=== PATIENT | male | born 1950 | race African-American/Black ===

== ENCOUNTER 2021-09-15 01:03 | Inpatient (IN) ==
[2021-09-15] MEDS ORDERED: ASPIRIN 325 MG TABLET PO STA (01:46)
[2021-09-15] MEDS ORDERED: MORPHINE 2 MG/1 ML SYRINGE IV STA (01:46)
[2021-09-15] MEDS ORDERED: KETOROLAC 30 MG/1 ML VIAL IV STA (01:46)
[2021-09-15] MEDS ORDERED: ALUM/MAG/SIMETH/LIDO VISC 1:1 30 ML BOTTLE PO STA (01:46)
[2021-09-15] MEDS ORDERED: NITROGLYCERIN 2% OINT 1 INCH/GM PACK TOP STA (01:46)
[2021-09-15] MEDS ORDERED: ONDANSETRON 4 MG/2 ML VIAL IV STA (01:46)
[2021-09-15 02:20] LABS: Basophils # 0.1 10*3/uL (0.0-0.2); Basophils % 0.8 % (0.0-0.8); Eosinophils # 0.3 10*3/uL (0.0-0.87); Eosinophils % 3.8 % (0.00-10.9); Hematocrit 43.5 VOL% (42.0-52.0); Hemoglobin 14.1 GM/DL (14.0-18.0); Immature Granulocytes % 0.3 %; Immature Granulocytes Absolute 0.02 #; Lymphocytes # 2.7 10*3/uL (1.4-4.0); Mean Corpuscular HGB Conc 32.4 GM/DL (32-36); Mean Corpuscular Volume 91.6 FL (87-102); Mean Platelet Volume 9.4 FL (9.6-12.0); Monocytes % 11.5 % (1.7-12.7); Neutrophils % 41.6 % (38.7-73.9); Platelet Count 239 T/CUMM (130-400); Red Blood Count 4.75 MC/CUMM (3.8-5.5); Red Cell Distribution Width 15.8 % (9.3-17.3); White Blood Count 6.5 T/CUMM (4-12)
[2021-09-15 02:40] LABS: Alanine Aminotransferase 69 U/L (16-61); Albumin 3.7 G/DL (3.4-5.0); Alkaline Phosphatase 82 U/L (45-117); Aspartate Amino Transferase 96 U/L (0-37); Bilirubin,Total < 0.39 MG/DL (0.20-1.00); Blood Urea Nitrogen 15 MG/DL (7-18); Calcium 8.9 MG/DL (8.5-10.1); Carbon Dioxide 29 MMOL/L (21-32); Estimated Glom Filtration Rate 139 ML/MIN; Glucose 109 MG/DL (74-106); Osmolality,Calculated 278.5 MOS/KG (273-304); Potassium 4.1 MMOL/L (3.5-5.1); Sodium 139 MMOL/L (136-145); Total Protein 6.7 G/DL (6.4-8.2)
[2021-09-15] MEDS ORDERED: ENOXAPARIN 100 MG/ML SYRINGE SUBCUT STA (02:56)
[2021-09-15] MEDS ORDERED: POTASSIUM CHLORIDE 20 MEQ TABLET PO PRN (03:03)
[2021-09-15] MEDS ORDERED: GLUCAGON 1 MG VIAL IM PRN (03:03)
[2021-09-15] MEDS ORDERED: ACETAMINOPHEN 325 MG TABLET PO PRN (03:03)
[2021-09-15] MEDS ORDERED: ONDANSETRON 4 MG/2 ML VIAL IV PRN (03:03)
[2021-09-15] MEDS ORDERED: DEXTROSE 50% 25 GM/50 ML VIAL IV PRN (03:03)
[2021-09-15] MEDS ORDERED: MAGNESIUM SULF RIDER 4 GM/100 ML PREMIX IV PRN (03:03)
[2021-09-15] MEDS ORDERED: hydrALAZINE 20 MG/1 ML VIAL IV PRN (03:03)
[2021-09-15] MEDS ORDERED: MAGNESIUM SULF RIDER 2 GM/50 ML PREMIX IV PRN (03:03)
[2021-09-15] MEDS ORDERED: MORPHINE 2 MG/1 ML SYRINGE IV ONE (03:11)
[2021-09-15] MEDS ORDERED: METOPROLOL TARTRATE 5 MG/5 ML VIAL IV STA (03:40)
[2021-09-15] MEDS: SODIUM CHLORIDE 0.9% 1,000 ML IV SCH ×2 (04:11→16:21)
[2021-09-15 06:04] LABS: PT Patient Result 10.9 SECS (10.5-12.0); Partial Thromboplastin Time 35.6 SECS (23.8-32.1)
[2021-09-15 06:27] LABS: Risk Ratio 3.5; Thyroid Stimulating Hormone 1.71 uIU/ml (0.358-3.74); VLDL Cholesterol 11.4 MG/DL
[2021-09-15 06:31] LABS: CKMB % 5.1 %
[2021-09-15 06:35] LABS: High Sensitive Troponin I* 15353.7 ng/L (0-78)
[2021-09-15 07:00] LABS: Hepatitis B Core IgM Quant 0.08 Index; Hepatitis B Surface Ag Quant < 0.10 Index; Hepatitis B Surface Ag Result Non-Reactive (NonReactive); Hepatitis C Virus Ab Quant > 11.00 Index; Hepatitis C Virus Ab Result Reactive (NonReactive)
[2021-09-15] MEDS ORDERED: HEPARIN/NACL 0.9% 2 UNITS/ML 0 UNIT/0 ML BAG IV ONE (08:16)
[2021-09-15] MEDS ORDERED: LIDOCAINE 1% 20 ML VIAL ONE ×2 (08:16→10:32)
[2021-09-15] MEDS ORDERED: POTASSIUM CHLORIDE RIDER 10 MEQ/100 ML PREMIX IV PRN (09:29)
[2021-09-15] MEDS ORDERED: DIAZEPAM 5 MG TABLET PO ONE (09:29)
[2021-09-15] MEDS ORDERED: diphenhydrAMINE CAP 25 MG CAPSULE PO ONE (09:29)
[2021-09-15] MEDS ORDERED: HEPARIN/NACL 0.9% 2 UNITS/ML 3,000 UNIT/1,500 ML BAG IV ONE (10:32)
[2021-09-15] MEDS ORDERED: MIDAZOLAM 2 MG/2 ML VIAL ONE ×2 (10:55→11:10)
[2021-09-15] MEDS ORDERED: fentaNYL 100 MCG/2 ML VIAL ONE (10:55)
[2021-09-15] MEDS ORDERED: HEPARIN 5,000 UNIT/1 ML VIAL ONE (11:15)
[2021-09-15] MEDS ORDERED: CLOPIDOGREL 300 MG TABLET ONE (11:18)
[2021-09-15] MEDS ORDERED: diphenhydrAMINE 50 MG/1 ML VIAL ONE (11:23)
[2021-09-15] MEDS ORDERED: NITROGLYCERIN DRIP 50 MG/250 ML BOTTLE IV ONE (11:43)
[2021-09-15] MEDS ORDERED: LOPERAMIDE 2 MG CAPSULE PO PRN (12:11)
[2021-09-15] MEDS ORDERED: ENOXAPARIN 80 MG/0.8 ML SYRINGE SUBCUT SCH (16:00)
[2021-09-15] MEDS: LOSARTAN 25 MG TABLET PO SCH (16:20)
[2021-09-15] MEDS: carvediloL 3.125 MG TABLET PO SCH ×2 (16:20→22:29)
[2021-09-15] MEDS: PANTOPRAZOLE 40 MG TABLET PO SCH (16:21)
[2021-09-15] MEDS: OXcarbazepine 300 MG TABLET PO SCH ×2 (16:57→22:36)
[2021-09-15] MEDS ORDERED: DOXEPIN 25 MG CAPSULE PO SCH (21:00)
[2021-09-15] MEDS: MOISTURIZING CREAM (EUCERIN) 106 GM JAR TOP SCH (22:36)
[2021-09-15] MEDS: OXYBUTYNIN 5 MG TABLET PO SCH (22:36)
[2021-09-16 05:08] LABS: Basophils % 0.3 % (0.0-0.8); Eosinophils # 0.2 10*3/uL (0.0-0.87); Eosinophils % 2.3 % (0.00-10.9); Hematocrit 37.4 VOL% (42.0-52.0); Hemoglobin 12.1 GM/DL (14.0-18.0); Immature Granulocytes % 0.3 %; Immature Granulocytes Absolute 0.03 #; Lymphocytes # 2.7 10*3/uL (1.4-4.0); Lymphocytes % 30.5 % (21.2-54.2); Mean Corpuscular HGB Conc 32.4 GM/DL (32-36); Mean Corpuscular Volume 89.9 FL (87-102); Mean Platelet Volume 9.7 FL (9.6-12.0); Neutrophils % 52.6 % (38.7-73.9); Platelet Count 213 T/CUMM (130-400); Red Blood Count 4.16 MC/CUMM (3.8-5.5); Red Cell Distribution Width 15.1 % (9.3-17.3); White Blood Count 8.8 T/CUMM (4-12)
[2021-09-16 05:24] LABS: Calcium 8.4 MG/DL (8.5-10.1); Osmolality,Calculated 277.4 MOS/KG (273-304); Potassium 4.2 MMOL/L (3.5-5.1)
[2021-09-16] MEDS: SODIUM CHLORIDE 0.9% 1,000 ML IV SCH ×2 (06:21→09:51)
[2021-09-16] MEDS: LOSARTAN 25 MG TABLET PO SCH (08:48)
[2021-09-16] MEDS: PANTOPRAZOLE 40 MG TABLET PO SCH (08:49)
[2021-09-16] MEDS: OXcarbazepine 300 MG TABLET PO SCH ×2 (08:49→15:42)
[2021-09-16] MEDS: MOISTURIZING CREAM (EUCERIN) 106 GM JAR TOP SCH (08:51)
[2021-09-16] MEDS: OXYBUTYNIN 5 MG TABLET PO SCH (08:56)
[2021-09-16] MEDS ORDERED: OXcarbazepine 300 MG TABLET PO SCH (09:00)
[2021-09-16] MEDS ORDERED: ROSUVASTATIN 20 MG TABLET PO SCH (09:00)
[2021-09-16] MEDS ORDERED: carvediloL 6.25 MG TABLET PO SCH (09:00)
[2021-09-16] MEDS ORDERED: ROSUVASTATIN 10 MG TABLET PO SCH (09:00)
[2021-09-16] MEDS ORDERED: CLOPIDOGREL 75 MG TABLET PO SCH (09:00)
[2021-09-16] MEDS ORDERED: ASPIRIN EC 325 MG TABLET PO SCH (09:00)
[2021-09-16] MEDS ORDERED: amLODIPine 5 MG TABLET PO SCH (09:00)
[2021-09-16] MEDS ORDERED: buPROPion SR 150 MG TABLET PO SCH (09:00)
[2021-09-16] MEDS ORDERED: NON-FORMULARY MEDICATION (Omeprazole 20 mg Capsule,Delayed Release(Dr/Ec)) PO SCH (09:00)
[2021-09-16] MEDS ORDERED: ASPIRIN EC 81 MG TABLET PO SCH (09:00)
[2021-09-16] MEDS ORDERED: ABACAVIR DOLUTEGRAVIR LAMIVUD PO SCH (09:00)
[2021-09-16 12:05] VITALS: BP 117/77
[2021-09-16] MEDS ORDERED: SIMVASTATIN 10 MG TABLET PO SCH (21:00)
== END 2021-09-16 16:33 | DRG 247 ==
LOC: EDBD → N.ED 01:03 → N.EDINP 03:03 → SUATTDRO 03:03 → N.EDINP 10:55 → N.TELES 16:21
PROVIDERS: ADMIT Internal Medicine; ATTEND Internal Medicine Geriatric Medicine